=== PATIENT | female | born 1995 | race Caucasian/White ===

== ENCOUNTER 2019-11-21 15:09 | Emergency (ER) | payer OTHER ==
[2019-11-21] MEDS ORDERED: Sodium Chloride 0.9% 1,000 ML IV ONE (15:13)
[2019-11-21 15:41] LABS: CHLORIDE,CL 102 mEq/L (98-106); SODIUM,NA 138 mEq/L (136-145)
--- NOTE | 2019-11-21 16:19 | EDM.PDOCBH ---
ED HPI GENERAL MEDICAL PROBLEM - General Chief Complaint: Drug or Alcohol Abuse Stated Complaint: overdose Time Seen by Provider: 11/21/19 15:10 Source of Information: Reports: Patient History Limitations: Reports: No Limitations - History of Present Illness INITIAL COMMENTS - FREE TEXT/NARRATIVE: Patient presents to ER with significant other due to concerns of "taking too many pills". Boyfriend relates that he had talked to her while he was at work "and she sounded sort of out of it" so he went and checked on her. Found her lying on the floor. Is coherent and answering questions. Patient relates that she too 2 "pink pills", 5 oxycodone and a 1/2 bottle of ibuprofen. Denies any pain, shortness of breath, nausea or vomiting. Feels "a little tired". Relates that she and her boyfriend have been together for 7 years, broke up in July and she had been back in [place]. She states she drove 16 hours to get here on Thursday and "things have not been going as well as she hoped". Onset: Today Duration: Hour(s): Location: Reports: Generalized Associated Symptoms: Denies: Confusion, Chest Pain, Cough, Fever/Chills, Loss of Appetite, Malaise, Nausea/Vomiting, Shortness of Breath, Syncope - Related Data Allergies Allergy/AdvReac Type Severity Reaction Status Date / Time No Known Allergies Allergy Verified 11/21/19 15:39 Home Meds: Home Meds . [No Known Home Meds] 11/21/19 [History] Past Medical History [employer] History: Reports: , Spontaneous - Past Surgical History Female Surgical History: Reports: D&C Social & Family History - Tobacco Use Smoking Status *Q: Never Smoker - Caffeine Use Caffeine Use: Reports: None - Recreational Drug Use Recreational Drug Use: No ED ROS GENERAL - Review of Systems Review Of Systems: See Below Constitutional: Denies: Fever, Chills, Malaise, Weakness, Fatigue, Decreased Appetite HEENT: Denies: Ear Pain, Sinus Problem, Throat Pain Respiratory: Denies: Shortness of Breath, Cough Cardiovascular: Denies: Chest Pain, Edema, Lightheadedness Endocrine: Reports: Fatigue GI/Abdominal: Denies: Abdominal Pain, Nausea, Vomiting : Reports: No Symptoms Musculoskeletal: Reports: No Symptoms Skin: Reports: No Symptoms Neurological: Denies: Confusion, Weakness Psychiatric: Reports: Suicidal Ideation ED EXAM, BEHAVIORAL HEALTH - Physical Exam Exam: See Below Exam Limited By: No Limitations General Appearance: WD/WN, No Apparent Distress, Other (mildly sleepy but converses while here, "just feels tired") Eye Exam: Bilateral Eye: EOMI, Other (sluggish) Ears: Normal External Exam, Normal TMs Nose: Normal Inspection, Normal Mucosa, No Blood Throat/Mouth: Normal Inspection, Normal Oropharynx Head: Normocephalic Neck: Normal Inspection, Supple, Non-Tender Respiratory/Chest: No Respiratory Distress, Lungs Clear, Normal Breath Sounds Cardiovascular: Regular Rate, Rhythm GI/Abdominal: Normal Bowel Sounds, Soft, Non-Tender Extremities: Normal Inspection, No Pedal Edema Neurological: Alert, Oriented x 3 Psychiatric: Tearful Skin Exam: Warm, Dry COURSE, BEHAVIORAL HEALTH COMP - Course Vital Signs: Last Vital Signs Temp 97 F 11/21/19 15:09 Pulse 88 11/21/19 15:54 Resp 16 11/21/19 15:54 BP 120/81 11/21/19 15:54 Pulse Ox 100 11/21/19 15:54 Orders, Labs, Meds: Active Orders 24 hr Category Date Time Status Telemetry Monitoring [Cardiac Monitoring] [RC] . Care 11/21/19 15:24 Active DIRECTED ACETAMINOPHEN [REF] Stat Lab 11/21/19 15:15 Received SALICYLATE [REF] Stat Lab 11/21/19 15:27 Ordered Laboratory Tests 11/21/19 11/21/19 11/21/19 Range/Units 15:13 15:15 15:15 WBC 9.3 (5.0-10.0) 10^3/uL RBC 4.10 (4.00-5.50) 10^6/uL Hgb 12.7 (12.0-16.0) g/dL Hct 36.1 L (37.0-47.0) % MCV 88.0 (82.0-94.0) fL MCH 31.0 (27.0-32.0) pg MCHC 35.2 (33.0-38.0) g/dL RDW Coeff of Guillermo 12.4 (11.0-15.0) % Plt Count 201 (150-400) 10^3/uL Neut % (Auto) 70.7 (35-85) % Lymph % (Auto) 23.2 (10-55) % [place] % (Auto) 5.8 (0-16) % Eos % (Auto) 0.2 (0-5) % Baso % (Auto) 0.1 (0-3) % Neut # (Auto) 6.58 (1.80-7.00) 10^3/uL Lymph # (Auto) 2.16 (1.00-4.80) 10^3/uL [place] # (Auto) 0.54 (0.00-0.80) 10^3/uL Eos # (Auto) 0.02 (0.00-0.45) 10^3/uL Baso # (Auto) 0.01 10^3/uL Sodium 138 (136-145) mEq/L Potassium 3.2 L (3.5-5.0) mEq/L Chloride 102 (98-106) mEq/L Carbon Dioxide 24 (21-32) mmol/L BUN 16 D (7-18) mg/dL Creatinine 0.8 D (0.6-1.0) mg/dL Est Cr Clr Drug Dosing 114.30 mL/min Estimated GFR (MDRD) > 60 (>=60) mL/min Glucose 101 H D (75-99) mg/dL Calcium 8.8 (8.4-10.1) mg/dL Total Bilirubin 0.5 (0.0-1.0) mg/dL AST 9 L (15-37) U/L ALT 15 (12-78) U/L Alkaline Phosphatase 39 L (46-116) U/L Total Protein 7.4 (6.4-8.2) g/dL Albumin 3.7 (3.4-5.0) g/dL Urine Color (YELLOW) Urine Appearance (CLEAR) Urine pH (4.5-8.0) Ur Specific [place] (1.003-1.020) Urine Protein (NEGATIVE) mg/dL Urine Glucose (UA) (NEGATIVE) mg/dL Urine Ketones (NEGATIVE) mg/dL Urine Occult Blood (NEGATIVE) Urine Nitrite (NEGATIVE) Urine Bilirubin (NEGATIVE) Urine Urobilinogen (0.2-1.0) EU/dL Ur Leukocyte Esterase (NEGATIVE) Urine RBC (0-5) /HPF Urine WBC (0-5) /HPF Ur Epithelial Cells (NOT SEEN) /HPF Amorphous Sediment (NOT SEEN) /HPF Urine Mucus (NOT SEEN) /HPF Urine Opiates Screen Negative (NEGATIVE) Ur Oxycodone Screen Positive H (NEGATIVE) Urine Methadone Screen Negative (NEGATIVE) Ur Barbiturates Screen Negative (NEGATIVE) U Tricyclic Antidepress Negative (NEGATIVE) Ur Phencyclidine Scrn Negative (NEGATIVE) Ur Amphetamine Screen Negative (NEGATIVE) U Methamphetamines Scrn Negative (NEGATIVE) Urine MDMA Screen Negative (NEGATIVE) U Benzodiazepines Scrn Negative (NEGATIVE) Urine Cocaine Screen Negative (NEGATIVE) U Marijuana (THC) Screen Negative (NEGATIVE) Ethyl Alcohol < 3 (0-3) mg/dL 11/21/19 Range/Units 15:29 WBC (5.0-10.0) 10^3/uL RBC (4.00-5.50) 10^6/uL Hgb (12.0-16.0) g/dL Hct (37.0-47.0) % MCV (82.0-94.0) fL MCH (27.0-32.0) pg MCHC (33.0-38.0) g/dL RDW Coeff of Guillermo (11.0-15.0) % Plt Count (150-400) 10^3/uL Neut % (Auto) (35-85) % Lymph % (Auto) (10-55) % [place] % (Auto) (0-16) % Eos % (Auto) (0-5) % Baso % (Auto) (0-3) % Neut # (Auto) (1.80-7.00) 10^3/uL Lymph # (Auto) (1.00-4.80) 10^3/uL [place] # (Auto) (0.00-0.80) 10^3/uL Eos # (Auto) (0.00-0.45) 10^3/uL Baso # (Auto) 10^3/uL Sodium (136-145) mEq/L Potassium (3.5-5.0) mEq/L Chloride (98-106) mEq/L Carbon Dioxide (21-32) mmol/L BUN (7-18) mg/dL Creatinine (0.6-1.0) mg/dL Est Cr Clr Drug Dosing mL/min Estimated GFR (MDRD) (>=60) mL/min Glucose (75-99) mg/dL Calcium (8.4-10.1) mg/dL Total Bilirubin (0.0-1.0) mg/dL AST (15-37) U/L ALT (12-78) U/L Alkaline Phosphatase (46-116) U/L Total Protein (6.4-8.2) g/dL Albumin (3.4-5.0) g/dL Urine Color Dark yellow (YELLOW) Urine Appearance Slightly cloudy (CLEAR) Urine pH 6.0 (4.5-8.0) Ur Specific [place] >= 1.030 H (1.003-1.020) Urine Protein 30 H (NEGATIVE) mg/dL Urine Glucose (UA) Negative (NEGATIVE) mg/dL Urine Ketones 40 H (NEGATIVE) mg/dL Urine Occult Blood Negative (NEGATIVE) Urine Nitrite Negative (NEGATIVE) Urine Bilirubin Small H (NEGATIVE) Urine Urobilinogen 0.2 (0.2-1.0) EU/dL Ur Leukocyte Esterase Negative (NEGATIVE) Urine RBC Not seen (0-5) /HPF Urine WBC Not seen (0-5) /HPF Ur Epithelial Cells Moderate H (NOT SEEN) /HPF Amorphous Sediment Moderate H (NOT SEEN) /HPF Urine Mucus Many H (NOT SEEN) /HPF Urine Opiates Screen (NEGATIVE) Ur Oxycodone Screen (NEGATIVE) Urine Methadone Screen (NEGATIVE) Ur Barbiturates Screen (NEGATIVE) U Tricyclic Antidepress (NEGATIVE) Ur Phencyclidine Scrn (NEGATIVE) Ur Amphetamine Screen (NEGATIVE) U Methamphetamines Scrn (NEGATIVE) Urine MDMA Screen (NEGATIVE) U Benzodiazepines Scrn (NEGATIVE) Urine Cocaine Screen (NEGATIVE) U Marijuana (THC) Screen (NEGATIVE) Ethyl Alcohol (0-3) mg/dL Medications Discontinued Medications Generic Name Dose Route Start Last Admin Trade Name Freq PRN Reason Stop Dose Admin Sodium Chloride 1,000 mls @ 999 mls/hr 11/21/19 15:13 11/21/19 15:30 Normal Saline IV 11/21/19 16:13 999 mls/hr .BOLUS ONE Administration Re-Assessment/Re-Exam: Patient has remained oriented, mildly sleepy but converses well. In further evaluation adn conversation with the patient, she admits she wasn't trying " kill myself but try to abort my baby". Admits that during her separation from her boyfriend, she had relations with other men and now is 6 weeks . Cannot afford an and doesn't want to boyfriend to know. She has only thus far told her sister of this. She thought if she took these pills it would cause a natural miscarriage like she had in the past. Does not have suicidal ideation or thoughts, wants it to work out with her boyfriend. They have a 2 year old child together and she wants a stable home for him. 1550-Contacted Isaura Day in regards to patient status. She is gone for the day so recommended contacting a screener at [facility] in [place]. Did call and speak with Marleny with patient concern. Patient is stable, still denies wanting to harm herself or have any suicidal thoughts. has been conversing with boyfriend by phone. 1700-Screening completed with [facility]. They do not feel she is a threat to herself. Contacted her boyfriend Elliot who is willing to accept responsibility of her and was advised to return if any other changes or threats occur, she needs to be brought back to the ER for placement. She continues to feel mildly tired but has no other complaints. Labs are all essentially normal except potassium is mildly low at 3.2. Urine drug screen positive only for oxycodone as expected and alcohol level is normal. Salicyclic acid and acetaminophen levels were sent. Departure - Departure Time of Disposition: 17:09 Disposition: Home, Self-Care 01 Condition: Good Clinical Impression: Drug overdose, intentional - Discharge Information *PRESCRIPTION DRUG MONITORING PROGRAM REVIEWED*: No *COPY OF PRESCRIPTION DRUG MONITORING REPORT IN PATIENT MAYA: No Forms: ED Department Discharge Additional Instructions: 1. Push fluids 2. Return if situation changes, have any suicidal thoughts, become more lethargic. Monitor for nausea/vomiting/mental status changes. 3. Call [facility] hotline if needed Sepsis Event Note - Evaluation Sepsis Screening Result: No Definite Risk - Focused Exam Vital Signs: Vital Signs Temp Pulse Resp BP Pulse Ox 11/21/19 15:54 88 16 120/81 100 11/21/19 15:09 97 F 84 13 131/84 100 Date Exam was Performed: 11/21/19 Time Exam was Performed: 17:04 - My Orders Last 24 Hours: My Active Orders 11/21/19 15:15 ACETAMINOPHEN [REF] Stat 11/21/19 15:24 Telemetry Monitoring [Cardiac Monitoring] [RC] . DIRECTED 11/21/19 15:27 SALICYLATE [REF] Stat - Assessment/Plan Last 24 Hours: My Active Orders 11/21/19 15:15 ACETAMINOPHEN [REF] Stat 11/21/19 15:24 Telemetry Monitoring [Cardiac Monitoring] [RC] . DIRECTED 11/21/19 15:27 SALICYLATE [REF] Stat
== END 2019-11-21 17:55 | disposition home or self-care (01) ==
LOC: CC.ED 15:09
DX: O9A.211 Injury, poisoning and certain other consequences of external causes complicating pregnancy, first trimester (principal); T40.2X2A Poisoning by other opioids, intentional self-harm, initial encounter; T39.312A Poisoning by propionic acid derivatives, intentional self-harm, initial encounter; Z3A.01 Less than 8 weeks gestation of pregnancy
CPT/HCPCS: 36415; 80053; 80305-QW; 80307; 81001; 85025; 93005; 99285-25; J7030